=== PATIENT | male | born 1985 | race African-American/Black ===

== ENCOUNTER 2020-02-23 08:56 | Emergency (ER) | payer BC ==
[2020-02-23] MEDS ORDERED: Ketorolac 15 MG/ML SDV IVPUSH ONE (09:02)
[2020-02-23] MEDS ORDERED: fentaNYL 50 MCG/ML SDV IVPUSH ONE (09:02)
[2020-02-23] MEDS ORDERED: Sodium Chloride 0.9% 2.5 ML Syringe FLUSH PRN (09:02)
[2020-02-23] MEDS ORDERED: Sodium Chloride 0.9% 10 ML Syringe FLUSH PRN (09:02)
[2020-02-23] MEDS ORDERED: Acetaminophen 500 MG Tab PO ONE (09:02)
[2020-02-23] MEDS ORDERED: Ondansetron 4 MG/2 ML SDV IVPUSH ONE (09:04)
[2020-02-23 09:55] LABS: BLOOD UREA NITROGEN,BUN 16 mg/dL (7.0-18.0); CHLORIDE,CL 101 mmol/L (98-107); GLUCOSE RANDOM 108 mg/dL (74-106); LIPASE 119 U/L (73-393); POTASSIUM,K 4.3 mmol/L (3.5-5.1); SODIUM,NA 137 mmol/L (136-148)
--- NOTE | 2020-02-23 10:08 | EDM.PDOC ---
ED [facility] GENERAL MEDICAL PROBLEM - General Chief Complaint: Abdominal Pain Stated Complaint: ABDOMINAL PAIN Time Seen by Provider: 02/23/20 09:02 Source of Information: Reports: Patient History Limitations: Reports: No Limitations - History of Present Illness INITIAL COMMENTS - FREE TEXT/NARRATIVE: 35-year-old male with no past medical history presenting with abdominal pain. He reports the onset of right lower quadrant abdominal pain around 1:00 this morning while at rest. Rated as 10 out of 10, described as "pressure", nonradiating. Nothing makes it better or worse. No history of prior pain like this. No self treatment prior to arrival. Denies any abdominal wall trauma, dysuria, hematuria, urinary frequency, vomiting, diarrhea, hematemesis, bloody stools, fever, back pain, or flank pain. No history of any prior abdominal surgeries. Denies testicular pain or swelling or genital lesions. ROS: A 10-point review of systems was negative, except as noted in the HPI (or in the ROS section of this note). Past medical history: Reviewed, no additional pertinent history. Surgical history: Reviewed in system, no additional pertinent history. Social history: Reviewed in system, no additional pertinent history. Family history: Reviewed in system, no additional pertinent history. PHYSICAL EXAM Vital signs reviewed. Nursing notes reviewed. Constitutional: Awake, alert, appears uncomfortable. Head: Normocephalic, atraumatic. Eyes: EOMI, conjunctiva normal, no discharge, no scleral icterus. Ears, Nose, Throat: External ears and nose normal, moist oral mucosa. Cardiovascular: 2+ radial pulse, capillary refill less than 2 seconds. Pulmonary: normal work of breathing, no accessory muscle use. CTA BL. Abdomen/GI: Soft, moderate tenderness in the right lower quadrant, nondistended, no guarding or rigidity, no masses. Negative CVA tenderness. : No testicular tenderness, or swelling, no lesions. Musculoskeletal: No deformities. Integumentary: Appropriate color for ethnicity, warm, dry, no pallor or jaundice, no rash. Neurologic: Alert, answering questions appropriately, normal speech, no facial droop, moving all extremities well. Psychiatric: Appropriate mood and affect, normal thought process. Bilateral lower abdominal pain Pain Score (Numeric/FACES): 10 - Related Data Allergies Allergy/AdvReac Type Severity Reaction Status Date / Time No Known Allergies Allergy Verified 02/23/20 08:58 Home Meds: Home Meds . [No Known Home Meds] 06/21/16 [History] Past Medical History - Past Health History Medical/Surgical History: Denies Medical/Surgical History Cardiovascular History: Reports: None Respiratory History: Reports: None Gastrointestinal History: Reports: None Musculoskeletal History: Reports: None Neurological History: Reports: None Psychiatric History: Reports: None Endocrine/Metabolic History: Reports: None Hematologic History: Reports: None Oncologic (Cancer) History: Reports: None - Infectious Disease History Infectious Disease History: Reports: None - Past Surgical History Male Surgical History: Reports: None Social & Family History - Family History Family Medical History: Noncontributory - Tobacco Use Smoking Status *Q: Never Smoker - Recreational Drug Use Recreational Drug Use: No ED ROS GENERAL - Review of Systems Review Of Systems: See Below ED EXAM, GI/ABD - Physical Exam Exam: See Below Course - Vital Signs Text/Narrative:: Patient hemodynamically stable, afebrile, well-appearing, looks nontoxic. Differential diagnosis includes but is not limited to: Kidney stone, UTI, pyelonephritis, appendicitis, AAA, mesenteric ischemia, colitis, bowel obstruction, ileus, testicular torsion, intra-abdominal infection, sepsis, etc. CBC shows no leukocytosis, hemoglobin is normal. Lactate is normal. Renal function and electrolytes are reassuring. Total bilirubin is mildly elevated at 1.2, otherwise LFTs look normal. Lipase within normal limits. Urinalysis shows no blood or evidence of infection. CT scan of the abdomen/pelvis with contrast demonstrates no acute abnormalities, although a small kidney stone could not be ruled out due to the presence of IV contrast. Patient was given IV fentanyl, IV ketorolac, and p.o. acetaminophen. His pain is significantly improved and is almost totally gone, he appears much more comfortable. He is not having any nausea and is able to tolerate p.o. intake. No objective evidence of urinary infection and patient has no symptoms to suggest such. No evidence of appendicitis, AAA, mesenteric ischemia, or colitis on imaging. Low suspicion for pathology, low suspicion for testicular torsion given lack of testicular pain or swelling. Possible the patient has a small kidney stone although there was no blood seen in the urine, this is not entirely sensitive for ureterolithiasis. There is no evidence of an acute emergency medical or surgical process that would require admission to the hospital or surgical consultation at this point. Given negative work-up and well appearance, patient is stable to discharge home with outpatient primary care follow-up. Recommended [id number] acetaminophen and ibuprofen as directed on the package for pain. We did discuss strict ED return precautions including worsening pain, bleeding, fever, chills, etc. Plan: Patient is stable to discharge home with outpatient primary care follow- up. Strict emergency department return precautions were provided, patient indicated understanding. All questions were answered prior to departure. Discharged in good condition. Last Recorded V/S: Last Vital Signs Temp 36.2 C 02/23/20 08:59 Pulse 71 02/23/20 10:23 Resp 17 02/23/20 10:23 BP 115/70 02/23/20 10:23 Pulse Ox 99 02/23/20 10:23 - Orders/Labs/Meds Orders: Active Orders 24 hr Category Date Time Status NPO Now [Nothing per Oral Now Diet] [DIET] Diet 02/23/20 Dinner Active Sodium Chloride 0.9% [Saline Flush] Med 02/23/20 09:02 Active 10 ml FLUSH ASDIRECTED PRN Sodium Chloride 0.9% [Saline Flush] Med 02/23/20 09:02 Active 2.5 ml FLUSH ASDIRECTED PRN Saline Lock Insert [OM.PC] Stat Oth 02/23/20 09:02 Ordered Medication Orders Sodium Chloride (Saline Flush) 10 ml FLUSH ASDIRECTED PRN PRN Reason: Keep Vein Open Last Admin: 02/23/20 09:12 Dose: 10 ml Documented by: [email or web address] Sodium Chloride (Saline Flush) 2.5 ml FLUSH ASDIRECTED PRN PRN Reason: Keep Vein Open Last Admin: 02/23/20 09:12 Dose: 2.5 ml Documented by: [id number] Labs: Laboratory Tests 02/23/20 02/23/20 02/23/20 Range/Units 09:23 09:23 09:23 WBC 5.82 (4.0-11.0) K/uL RBC 4.79 (4.50-5.90) M/uL Hgb 14.4 (13.0-17.0) g/dL Hct 43.0 (38.0-50.0) % MCV 89.8 (80.0-98.0) fL MCH 30.1 (27.0-32.0) pg MCHC 33.5 (31.0-37.0) g/dL RDW Std Deviation 38.9 (28.0-62.0) fl RDW Coeff of Luna 12 (11.0-15.0) % Plt Count 184 (150-400) K/uL MPV 10.10 (7.40-12.00) fL Neut % (Auto) 81.1 H (48.0-80.0) % Lymph % (Auto) 14.6 L (16.0-40.0) % [place] % (Auto) 4.1 (0.0-15.0) % Eos % (Auto) 0.0 (0.0-7.0) % Baso % (Auto) 0.2 (0.0-1.5) % Neut # (Auto) 4.7 (1.4-5.7) K/uL Lymph # (Auto) 0.9 (0.6-2.4) K/uL [place] # (Auto) 0.2 (0.0-0.8) K/uL Eos # (Auto) 0.0 (0.0-0.7) K/uL Baso # (Auto) 0.0 (0.0-0.1) K/uL Nucleated RBC % 0.0 /100WBC Nucleated RBCs # 0 K/uL Lactate 1.1 (0.20-2.00) mmol/L Sodium 137 (136-148) mmol/L Potassium 4.3 (3.5-5.1) mmol/L Chloride 101 (98-107) mmol/L Carbon Dioxide 28.0 (21.0-32.0) mmol/L BUN 16 (7.0-18.0) mg/dL Creatinine 1.3 (0.8-1.3) mg/dL Est Cr Clr Drug Dosing 83.45 mL/min Estimated GFR (MDRD) > 60.0 ml/min Glucose 108 H (74-106) mg/dL Calcium 8.5 (8.5-10.1) mg/dL Total Bilirubin 1.2 H (0.2-1.0) mg/dL AST 28 (15-37) IU/L ALT 43 (14-63) IU/L Alkaline Phosphatase 114 (46-116) U/L Total Protein 8.3 H (6.4-8.2) g/dL Albumin 4.2 (3.4-5.0) g/dL Globulin 4.1 H (2.6-4.0) g/dL Albumin/Globulin Ratio 1.0 (0.9-1.6) Lipase 119 (73-393) U/L Urine Color Urine Appearance Urine pH (5.0-8.0) Ur Specific [place] (1.001-1.035) Urine Protein (NEGATIVE) mg/dL Urine Glucose (UA) (NEGATIVE) mg/dL Urine Ketones (NEGATIVE) mg/dL Urine Occult Blood (NEGATIVE) Urine Nitrite (NEGATIVE) Urine Bilirubin (NEGATIVE) Urine Urobilinogen (<2.0) EU/dL Ur Leukocyte Esterase (NEGATIVE) 02/23/20 Range/Units 10:32 WBC (4.0-11.0) K/uL RBC (4.50-5.90) M/uL Hgb (13.0-17.0) g/dL Hct (38.0-50.0) % MCV (80.0-98.0) fL MCH (27.0-32.0) pg MCHC (31.0-37.0) g/dL RDW Std Deviation (28.0-62.0) fl RDW Coeff of Luna (11.0-15.0) % Plt Count (150-400) K/uL MPV (7.40-12.00) fL Neut % (Auto) (48.0-80.0) % Lymph % (Auto) (16.0-40.0) % [place] % (Auto) (0.0-15.0) % Eos % (Auto) (0.0-7.0) % Baso % (Auto) (0.0-1.5) % Neut # (Auto) (1.4-5.7) K/uL Lymph # (Auto) (0.6-2.4) K/uL [place] # (Auto) (0.0-0.8) K/uL Eos # (Auto) (0.0-0.7) K/uL Baso # (Auto) (0.0-0.1) K/uL Nucleated RBC % /100WBC Nucleated RBCs # K/uL Lactate (0.20-2.00) mmol/L Sodium (136-148) mmol/L Potassium (3.5-5.1) mmol/L Chloride (98-107) mmol/L Carbon Dioxide (21.0-32.0) mmol/L BUN (7.0-18.0) mg/dL Creatinine (0.8-1.3) mg/dL Est Cr Clr Drug Dosing mL/min Estimated GFR (MDRD) ml/min Glucose (74-106) mg/dL Calcium (8.5-10.1) mg/dL Total Bilirubin (0.2-1.0) mg/dL AST (15-37) IU/L ALT (14-63) IU/L Alkaline Phosphatase (46-116) U/L Total Protein (6.4-8.2) g/dL Albumin (3.4-5.0) g/dL Globulin (2.6-4.0) g/dL Albumin/Globulin Ratio (0.9-1.6) Lipase (73-393) U/L Urine Color YELLOW Urine Appearance CLEAR Urine pH 7.0 (5.0-8.0) Ur Specific [place] 1.020 (1.001-1.035) Urine Protein NEGATIVE (NEGATIVE) mg/dL Urine Glucose (UA) NEGATIVE (NEGATIVE) mg/dL Urine Ketones NEGATIVE (NEGATIVE) mg/dL Urine Occult Blood NEGATIVE (NEGATIVE) Urine Nitrite NEGATIVE (NEGATIVE) Urine Bilirubin NEGATIVE (NEGATIVE) Urine Urobilinogen 0.2 (<2.0) EU/dL Ur Leukocyte Esterase NEGATIVE (NEGATIVE) Meds: Medications Generic Name Dose Route Start Last Admin Trade Name Freq PRN Reason Stop Dose Admin Sodium Chloride 10 ml 02/23/20 09:02 02/23/20 09:12 Saline Flush FLUSH 10 ml ASDIRECTED PRN Administration Keep Vein Open Sodium Chloride 2.5 ml 02/23/20 09:02 02/23/20 09:12 Saline Flush FLUSH 2.5 ml ASDIRECTED PRN Administration Keep Vein Open Discontinued Medications Generic Name Dose Route Start Last Admin Trade Name Drew PRN Reason Stop Dose Admin Acetaminophen 1,000 mg 02/23/20 09:02 02/23/20 09:12 Tylenol Extra Strength PO 02/23/20 09:03 1,000 mg ONETIME ONE Administration Fentanyl 50 mcg 02/23/20 09:02 02/23/20 09:12 Fentanyl IVPUSH 02/23/20 09:03 50 mcg ONETIME ONE Administration Iopamidol 100 ml 02/23/20 10:24 02/23/20 10:24 Isovue Multipack-370 (76%) IVPUSH 02/23/20 10:25 100 ml ONETIME ONE Administration Ketorolac Tromethamine 15 mg 02/23/20 09:02 02/23/20 09:11 Toradol IVPUSH 02/23/20 09:03 15 mg ONETIME ONE Administration Ondansetron HCl 4 mg 02/23/20 09:04 02/23/20 09:11 Zofran IVPUSH 02/23/20 09:05 4 mg ONETIME ONE Administration Departure - Departure Time of Disposition: 10:50 Disposition: Home, Self-Care 01 Condition: Good Clinical Impression: Right lower quadrant abdominal pain of unknown etiology - Discharge Information *PRESCRIPTION DRUG MONITORING PROGRAM REVIEWED*: Not Applicable *COPY OF PRESCRIPTION DRUG MONITORING REPORT IN PATIENT ALFRED: Not Applicable Instructions: Abdominal Pain, Adult, Pain Without a Known Cause Referrals: [facility] - Family Practice [Provider Group] - 1 Week (For follow-up of symptoms) Forms: ED Department Discharge Additional Instructions: Thank you for choosing the [facility] emergency department in [place] for your medical needs today. It was a pleasure caring for you. You were seen in the emergency department for abdominal pain. Your blood work, urine test, and CT scan look reassuring. The cause of your pain is not immediately clear at this point, you may have a small kidney stone, but there is no evidence of an emergency condition that require surgery or for you to be admitted to the hospital. I am glad you are feeling better. We are going to let you go home and follow-up with a primary medical doctor in the next few days if your symptoms do not go away. I recommend [id number] extra strength acetaminophen (1000 mg every 6 hours) and ibuprofen (400 mg every 6 hours) to help treat your pain. If your symptoms worsen, if you develop a fever, chills, bloody vomit or bowel movements, or any other new or concerning symptoms, come back to the ER right away. Please return the emergency department immediately if your symptoms worsen or if you feel worse. The following information is given to patients seen in the emergency department who are being discharged. This information is to outline your options for follow-up care. We provide all patients seen in our emergency department with a follow-up referral. The need for follow-up, as well as the timing and circumstances, are variable depending upon the specifics of your emergency department visit. If you don't have a primary care physician on staff, we will provide you with a referral. We always advise you to contact your personal physician following an emergency department visit to inform them of the circumstance of the visit and for follow-up with them and/or the need for any referrals to a consulting specialist. The emergency department will also refer you to a specialist when appropriate. This referral assures that you have the opportunity for follow-up care with a specialist. All of these measure are taken in an effort to provide you with optimal care, which includes your follow-up. Under all circumstances we always encourage you to contact your private physician who remains a resource for coordinating your care. When calling for follow-up care, please make the office aware that this follow-up is from your recent emergency room visit. If for any reason you are refused follow-up, please contact the [facility] Emergency Department at and asked to speak to the emergency department charge nurse. If you do not have a primary care physician that is caring for you, you can contact these clinics below to set up an appointment to establish care: [facility] - Primary Care [address] [place] [id number] [address] Sepsis Event Note (ED) - Evaluation Sepsis Screening Result: No Definite Risk - Focused Exam Vital Signs: Vital Signs Temp Pulse Resp BP Pulse Ox 02/23/20 10:23 71 17 115/70 99 02/23/20 08:59 36.2 C 69 16 119/72 98 - My Orders Last 24 Hours: My Active Orders 02/23/20 09:02 Sodium Chloride 0.9% [Saline Flush] 10 ml FLUSH ASDIRECTED PRN Sodium Chloride 0.9% [Saline Flush] 2.5 ml FLUSH ASDIRECTED PRN Saline Lock Insert [OM.PC] Stat 02/23/20 Dinner NPO Now [Nothing per Oral Now Diet] [DIET] - Assessment/Plan Last 24 Hours: My Active Orders 02/23/20 09:02 Sodium Chloride 0.9% [Saline Flush] 10 ml FLUSH ASDIRECTED PRN Sodium Chloride 0.9% [Saline Flush] 2.5 ml FLUSH ASDIRECTED PRN Saline Lock Insert [OM.PC] Stat 02/23/20 Dinner NPO Now [Nothing per Oral Now Diet] [DIET]
[2020-02-23] MEDS ORDERED: Iopamidol 755 MG/ML 200 ML Multipack Bottle IVPUSH ONE (10:24)
--- NOTE | 2020-02-23 10:40 | CT ---
CT abdomen and pelvis Technique: Multiple axial sections were obtained from above the dome of the diaphragm inferiorly through the pubic symphysis. Intravenous contrast was utilized. No oral contrast has been given. Comparison: No prior intra-abdominal imaging is available. Findings: Kidneys show symmetric contrast enhancement. No hydronephrosis is seen. Contrast obscures possible small renal calculi. No ureteral dilatation is seen. No ureteral calcifications are seen. No renal mass is seen. Visualized lung bases show nothing acute. Liver contains no focal parenchymal abnormality. Spleen appears within normal limits. Pancreas shows no discrete abnormality. Gallbladder contains no calcified gallstones. Aorta shows no aneurysm. No retroperitoneal adenopathy or mesenteric abnormalities are seen. Appendix is visualized and appears normal in size. No pelvic mass or adenopathy is seen. No free fluid or inflammatory change is seen. Bone window settings were reviewed. No acute osseous finding is appreciated. Impression: 1. Contrast seen within both kidneys which could obscure small nonobstructing renal calculi. 2. No ureteral dilatation or ureteral stone is seen. 3. No additional abnormality is appreciated on CT study of the abdomen and pelvis. No free fluid or inflammatory change is appreciated. Diagnostic code #1 This report was dictated in MDT
[2020-02-23 11:08] VITALS: BP 112/55; PULSE 70
== END 2020-02-23 11:08 | disposition home or self-care (01) ==
LOC: MW.ED 08:56
DX: R10.31 Right lower quadrant pain (principal)
CPT/HCPCS: 36415; 74177; 80053; 81003; 83605; 83690; 85025; 96374; 96375; 99284; A9270; J1885; J2405; J3010; Q9967; 99283